=== PATIENT | male | born 1965 | race Caucasian/White ===

== ENCOUNTER 2017-12-19 15:36 | Emergency (ER) | payer SELFPAY ==
[2017-12-19] MEDS ORDERED: SODIUM CHLORIDE 0.9% 1000ML 1,000 ML IVS ONE (15:54)
[2017-12-19] MEDS ORDERED: PROMETHAZINE HCL INJ 25 MG in SODIUM CHLORIDE 0.9% 50ML 50 ML IVPB ONE (15:55)
[2017-12-19] MEDS ORDERED: PROMETHAZINE HCL INJ 25 MG/ML VIAL ONE (15:56)
[2017-12-19] MEDS ORDERED: SODIUM CHLORIDE 0.9% 50ML 50 ML ONE (15:56)
--- NOTE | 2017-12-19 16:21 | RAD ---
EXAM DESCRIPTION: Abdomen Series CLINICAL HISTORY: 20hrs abd pain COMPARISON: None Available. TECHNIQUE: PA chest with supine and upright views of the abdomen] FINDINGS: The lungs are clear. The heart is normal size. There is an unremarkable bowel gas pattern. There is no mass or calculus. IMPRESSION: Normal acute abdomen series Electronically signed by: Anshul José MD 12/19/2017 4:20 PM CDT
[2017-12-19] MEDS ORDERED: ALUMINUM & MAGNESIUM HYDROXIDE 30 ML UD PO ONE (17:18)
[2017-12-19] MEDS ORDERED: POTASSIUM CHLORIDE 20mEq 10ML VIAL IVPB ONE (17:18)
[2017-12-19] MEDS ORDERED: KCL 20MEQ/WATER FOR INJ 100ML 100 ML IVPB ONE (17:43)
--- NOTE | 2017-12-19 17:53 | CT ---
EXAM DESCRIPTION: Abdomen/Pelvis w/Contrast CLINICAL HISTORY:52 years Male, severe abd pain 16 hours Comparison: None TECHNIQUE: Contiguous axial images of the abdomen and pelvis were obtained followed by reconstruction images. This exam was performed according to our departmental dose-optimization program, which includes automated exposure control, adjustment of the mA and/or kV according to patient size and/or use of iterative reconstruction technique. FINDINGS: Lung bases: Lung bases are clear. Heart: Visualized heart is within normal limits in size. Liver:Unremarkable. No focal liver lesion. Gallbladder:Unremarkable. No gallstones. No gallbladder wall thickening or pericholecystic fluid. Spleen:Unremarkable Pancreas: Pancreas is unremarkable. Adrenal glands:Unremarkable Right kidney/ureter:Unremarkable. Left kidney/ureter:Subcentimeter hypodensity, likely cyst. No suspicious lesion. No nephrolithiasis. Bladder:Unremarkable. Pelvic organs: No acute abnormality Vascular structures: Unremarkable Free fluid: No free fluid. Lymph nodes: No abnormal lymph nodes. Stomach/small bowel/colon: Stomach is unremarkable. Small bowel is unremarkable. Colon is unremarkable. Appendix: Dilated appendix with wall thickening and surrounding inflammatory changes. Findings consistent with acute appendicits. Bones: No acute osseous abnormality. Soft tissues: Small fat-containing umbilical hernia.. IMPRESSION: Findings consistent with acute appendicitis. No rita perforation or abscess formation. Electronically signed by: Denis Still MD 12/19/2017 5:51 PM CDT
[2017-12-19] MEDS ORDERED: MORPHINE SULFATE INJ 10 MG/ML VIAL IV ONE (18:08)
[2017-12-19] MEDS ORDERED: PANTOPRAZOLE SODIUM IV 40 MG VIAL IV ONE (18:08)
[2017-12-19] MEDS ORDERED: CEFOTAXIME SODIUM IVPB ONE (18:11)
[2017-12-19] MEDS ORDERED: SODIUM CHLORIDE 0.9% IVPB ONE (18:11)
[2017-12-19] MEDS ORDERED: CEFOTAXIME SODIUM 1 GM VIAL ONE (18:37)
[2017-12-19] MEDS ORDERED: SODIUM CHLORIDE 0.9% 100ML 100 ML IVPB ONE ×2 (18:37→19:20)
--- NOTE | 2017-12-19 18:41 | ED.PDOC ---
History of Present Illness - General Chief Complaint: Abdominal Pain Stated Complaint: ABDOMINAL PAIN Time Seen by Provider: 12/19/17 15:38 Source: patient Exam Limitations: no limitations - History of Present Illness Initial Comments: the patient is a 52-year-old male presenting to the emergency room secondary to diffuse abdominal pain starting more than 24 hours ago. He is not had any diarrhea and has not vomited but he does have nausea. He has had poor oral intake over the last 12 hours. It has gotten to where he is having some pain just with walking. Pain never really localized just to the right lower quadrant. No history of any gallbladder problems. He denies any abdominal surgeries. He thinks he has had a fever but is unsure. No recent trauma. He denies any daily medications. No bleeding problems in the past. Timing/Duration: 24 hours Severity: severe Improving Factors: nothing Worsening Factors: nothing Associated Symptoms: loss of appetite, malaise, nausea/vomiting Allergies/Adverse Reactions: Allergies NO KNOWN ALLERGY Allergy (Verified 12/19/17 15:55) Review of Systems - Review of Systems Constitutional: States: fever, malaise EENTM: States: no symptoms reported Respiratory: States: no symptoms reported Cardiology: States: no symptoms reported Gastrointestinal/Abdominal: States: abdominal pain, nausea. Denies: constipation, diarrhea, vomiting Genitourinary: States: no symptoms reported Musculoskeletal: States: no symptoms reported Skin: States: no symptoms reported Neurological: States: no symptoms reported Endocrine: States: no symptoms reported All other Systems: No Change from Baseline Past Medical History (General) - Patient Medical History Hx Asthma: No Surgical History: no surgical history Family Medical History - Family History Mother Family History: No Known Physical Exam - Physical Exam General Appearance: Alert, Anxious, Obvious distress Eye Exam: bilateral normal Ears, Nose, Throat: hearing grossly normal, normal ENT inspection, normal pharynx - very poor dentition Neck: full range of motion, supple Respiratory: lungs clear, normal breath sounds, no respiratory distress, no accessory muscle use Cardiovascular/Chest: normal peripheral pulses, regular rate, rhythm, no edema Peripheral Pulses: radial,right: 2+, radial,left: 2+, dorsalis pedis,right: 2+, dorsalis pedis,left: 2+ Gastrointestinal/Abdominal: other - the patient does have some guarding.he does have some peritonitis. No definite palpable masses. Questionable rebound. Back Exam: normal inspection, no CVA tenderness Extremity: normal range of motion, non-tender, normal inspection, no pedal edema , normal capillary refill Neurologic: alert, normal mood/affect, oriented x 3 Skin Exam: normal color Comments: Vital Signs - 24 hr 12/19/17 12/19/17 12/19/17 15:46 16:40 17:00 Temperature 100.0 F H Pulse Rate [ 99 H 94 H 98 H pulse ox] Respiratory 20 20 20 Rate Blood Pressure 138/78 118/70 117/70 [Right Arm] O2 Sat by Pulse 99 96 95 Oximetry 12/19/17 18:00 Temperature Pulse Rate [ 103 H pulse ox] Respiratory 20 Rate Blood Pressure 131/69 [Right Arm] O2 Sat by Pulse 96 Oximetry Progress - Progress Progress: 12/19/17 18:42 the patient's a 52-year-old male presenting to the emergency room secondary to abdominal pain that started 24 hours ago. The patient does have an appendicitis by CT scan but no evidence of perforation or abscess formation. White blood cell count is 18,000. Blood culture has been done. He has received a dose of a cephalosporin IV. The patient will be transferred for surgical intervention. He has also received a liter of IV fluids. he has received a dose of morphine and a dose of Phenergan as well. He has also received a dose of Protonix. 12/19/17 18:45 12/19/17 18:54 the patient will be receiving [facility]. Vital signs have been stable. No evidence of hypotension. Lactic acid is within normal limits technically. - Results/Orders Results/Orders: cT scan of abdomen and pelvis shows some thickening of the appendix and some surrounding inflammatory changes. No perforation or abscess. No other acute pathology noted in the abdomen and pelvis. Laboratory Tests 12/19/17 12/19/17 12/19/17 16:05 16:35 16:35 WBC 18.3 H RBC 5.07 Hgb 14.6 Hct 43.0 MCV 84.7 MCH 28.8 MCHC 34.0 RDW 14.3 Plt Count 266 MPV 8.9 Absolute Neuts (auto) 15.10 H Absolute Lymphs (auto) 1.40 Absolute Monos (auto) 1.80 H Absolute Eos (auto) 0.00 Absolute Basos (auto) 0.00 Neutrophils % 82.6 H Lymphocytes % 7.4 L Monocytes % 9.9 H Eosinophils % 0.0 L Basophils % 0.1 PT INR PTT (SP) D-Dimer, Quantitative Sodium 140 Potassium 3.1 L Chloride 101 Carbon Dioxide 31 Anion Gap 11.1 L BUN 17 Creatinine 1.00 BUN/Creatinine Ratio 17.0 Random Glucose 120 H Serum Osmolality 282.1 Lactic Acid Calcium 9.3 Total Bilirubin 2.0 H AST 18 ALT 21 Alkaline Phosphatase 46 Creatine Kinase 120 CK-MB (CK-2) 1.4 CK-MB (CK-2) % Not Reportable Troponin I < 0.02 B-Natriuretic Peptide 29.3 Serum Total Protein 7.9 Albumin 4.6 Globulin 3.3 Albumin/Globulin Ratio 1.4 Amylase 59 Urine Color Yellow Urine Appearance Clear Urine pH >= 9.0 H* Ur Specific [place] 1.015 Urine Protein 100 H Urine Glucose (UA) Negative Urine Ketones Negative Urine Blood Negative Urine Nitrite Negative Urine Bilirubin Negative Urine Urobilinogen 0.2 Ur Leukocyte Esterase Negative Urine RBC 0 Urine WBC 0-1 Ur Epithelial Cells 0-1 Amorphous Sediment 3+ Urine Bacteria 0 12/19/17 12/19/17 16:35 16:35 WBC RBC Hgb Hct MCV MCH MCHC RDW Plt Count MPV Absolute Neuts (auto) Absolute Lymphs (auto) Absolute Monos (auto) Absolute Eos (auto) Absolute Basos (auto) Neutrophils % Lymphocytes % Monocytes % Eosinophils % Basophils % PT 13.1 H INR 1.130 PTT (SP) 28.9 D-Dimer, Quantitative < 230 Sodium Potassium Chloride Carbon Dioxide Anion Gap BUN Creatinine BUN/Creatinine Ratio Random Glucose Serum Osmolality Lactic Acid 1.6 Calcium Total Bilirubin AST ALT Alkaline Phosphatase Creatine Kinase CK-MB (CK-2) CK-MB (CK-2) % Troponin I B-Natriuretic Peptide Serum Total Protein Albumin Globulin Albumin/Globulin Ratio Amylase Urine Color Urine Appearance Urine pH Ur Specific [place] Urine Protein Urine Glucose (UA) Urine Ketones Urine Blood Urine Nitrite Urine Bilirubin Urine Urobilinogen Ur Leukocyte Esterase Urine RBC Urine WBC Ur Epithelial Cells Amorphous Sediment Urine Bacteria Departure - Departure Clinical Impression: Acute appendicitis Qualifiers: Acute appendicitis type: with generalized peritonitis Qualified Code(s): K35.2 - Acute appendicitis with generalized peritonitis Disposition: Transfer to Hospital Transfer to Outside Facility - Transfer Information Accepting Provider:: dr da silva/dr lucas Accepting Facility: [facility] Reason for Transfer: required specialist not available
[2017-12-19] MEDS ORDERED: PIPERACILLIN/TAZOBACTAM 3.375 GM in SODIUM CHLORIDE 0.9% 100ML 100 ML IVPB ONE (18:52)
[2017-12-19 19:20] VITALS: TEMP 101.6; O2SAT 97
[2017-12-19] MEDS ORDERED: PIPERACILLIN/TAZOBACTAM 3.375 GM VIAL IVPB ONE (19:20)
[2017-12-19 19:48] VITALS: BP 130/74
== END 2017-12-19 19:48 | disposition short-term general hospital (02) ==
LOC: ER 15:36
DX: K35.2 Acute appendicitis with generalized peritonitis (principal)
CPT/HCPCS: 36415; 74019; 74177; 80053; 81001; 82150; 82550; 82553; 83605; 83880; 84484; 85025; 85379; 85610; 85730; 87040; A4216; J0698; J2270; J2543; J2550; J3480; J7030; J7050

== ENCOUNTER 2020-06-04 19:26 | Emergency (ER) | payer SELFPAY ==
[2020-06-04] MEDS ORDERED: SODIUM CHLORIDE 0.9% 1000ML 1,000 ML IVS ONE (19:54)
[2020-06-04] MEDS ORDERED: ASPIRIN (CHEWABLE) 81 MG TAB PO ONE (19:55)
--- NOTE | 2020-06-04 20:02 | ED.PDOC ---
History of Present Illness - General Chief Complaint: Respiratory Problem Time Seen by Provider: 06/04/20 19:42 - History of Present Illness Initial Comments: 54 yo M no significant PMH presents to ED c/o chest pain sob diarrhea no blood intermittently x 10 days states 'I just know I've got COVID' Also reports fatigue and body aches. Reports subjective fever denies cough admits sob denies recent travel and is suspicious of possible exposure covid19 admits subjective fever chills denies nausea vomiting admits non bloody diarrhea chest pain and sob denies diaphoresis no change in diet rest or bladder has no PMD no other c/o today. PPE worn-N95 surgical mask with attached face shield over N95 gloves and face shield over that Allergies/Adverse Reactions: Allergies NO KNOWN ALLERGY Allergy (Verified 12/19/17 15:55) Home Medications: Ambulatory Orders Acetaminophen [Tylenol] 650 mg PO Q6H PRN #30 tab 06/04/20 Review of Systems - Review of Systems Constitutional: States: see HPI EENTM: States: see HPI Respiratory: States: see HPI Cardiology: States: see HPI Gastrointestinal/Abdominal: States: see HPI Genitourinary: States: see HPI Musculoskeletal: States: see HPI Skin: States: see HPI Neurological: States: see HPI Endocrine: States: see HPI Hematologic/Lymphatic: States: see HPI All other Systems: Reviewed and Negative Past Medical History (General) - Patient Medical History Hx Asthma: No Family Medical History - Family History Mother Family History: No Known Physical Exam - Physical Exam General Appearance: No apparent distress Eye Exam: bilateral normal Ears, Nose, Throat: normal ENT inspection Neck: non-tender Respiratory: no respiratory distress Cardiovascular/Chest: regular rate, rhythm Gastrointestinal/Abdominal: non tender, soft Rectal Exam: deferred Back Exam: normal inspection Extremity: non-tender Neurologic: no motor/sensory deficits Skin Exam: normal color Progress - Progress Progress: 06/04/20 20:04 A/P-Chest Pain SOB Diarrhea Fatigue Myalgia-iv bolus ekg cxr cbc cmp trop ua asa rapid covid reassess 06/04/20 20:48 EKG-non specific TW changes Sinus Tachycardia 107bpm Laboratory Tests 06/04/20 06/04/20 06/04/20 20:04 20:04 20:04 WBC 11.9 H RBC 5.10 Hgb 14.8 Hct 41.5 L MCV 81.2 MCH 29.0 MCHC 35.8 RDW 14.2 Plt Count 315 MPV 8.0 Absolute Neuts (auto) 9.60 H Absolute Lymphs (auto) 1.20 Absolute Monos (auto) 1.00 H Absolute Eos (auto) 0.00 Absolute Basos (auto) 0.00 Neutrophils % 80.7 H Lymphocytes % 10.5 L Monocytes % 8.4 Eosinophils % 0.0 L Basophils % 0.4 PT 10.7 INR 1.08 PTT (SP) 29.2 Sodium 135 Potassium 3.7 Chloride 97 L Carbon Dioxide 22 Anion Gap 19.7 H BUN 18 Creatinine 1.15 BUN/Creatinine Ratio 15.7 Random Glucose 107 H Serum Osmolality 272.5 L Lactic Acid Calcium 8.9 Total Bilirubin 1.2 H AST 58 H ALT 125 H Alkaline Phosphatase 71 Serum Total Protein 8.2 Albumin 3.8 Globulin 4.4 H Albumin/Globulin Ratio 0.9 L Lipase 35 Urine Color Urine Appearance Urine pH Ur Specific [place] Urine Protein Urine Glucose (UA) Urine Ketones Urine Blood Urine Nitrite Urine Bilirubin Urine Urobilinogen Ur Leukocyte Esterase Urine RBC Urine WBC Ur Epithelial Cells Urine Bacteria Urine Mucus 06/04/20 06/04/20 20:04 20:15 WBC RBC Hgb Hct MCV MCH MCHC RDW Plt Count MPV Absolute Neuts (auto) Absolute Lymphs (auto) Absolute Monos (auto) Absolute Eos (auto) Absolute Basos (auto) Neutrophils % Lymphocytes % Monocytes % Eosinophils % Basophils % PT INR PTT (SP) Sodium Potassium Chloride Carbon Dioxide Anion Gap BUN Creatinine BUN/Creatinine Ratio Random Glucose Serum Osmolality Lactic Acid 1.3 Calcium Total Bilirubin AST ALT Alkaline Phosphatase Serum Total Protein Albumin Globulin Albumin/Globulin Ratio Lipase Urine Color Dk yellow Urine Appearance Sl cloudy Urine pH 5.0 Ur Specific [place] >= 1.030 Urine Protein 100 H Urine Glucose (UA) Negative Urine Ketones 80 H Urine Blood Small H Urine Nitrite Negative Urine Bilirubin Small H Urine Urobilinogen 0.2 Ur Leukocyte Esterase Negative Urine RBC 0-1 Urine WBC 0-1 Ur Epithelial Cells 0 Urine Bacteria 0 Urine Mucus Moderate Dx-Dehydration, Hematuria add ct abdomen pelvis reassess 06/04/20 21:25 Laboratory Tests 06/04/20 06/04/20 06/04/20 20:04 20:04 20:04 WBC 11.9 H RBC 5.10 Hgb 14.8 Hct 41.5 L MCV 81.2 MCH 29.0 MCHC 35.8 RDW 14.2 Plt Count 315 MPV 8.0 Absolute Neuts (auto) 9.60 H Absolute Lymphs (auto) 1.20 Absolute Monos (auto) 1.00 H Absolute Eos (auto) 0.00 Absolute Basos (auto) 0.00 Neutrophils % 80.7 H Lymphocytes % 10.5 L Monocytes % 8.4 Eosinophils % 0.0 L Basophils % 0.4 PT 10.7 INR 1.08 PTT (SP) 29.2 Sodium 135 Potassium 3.7 Chloride 97 L Carbon Dioxide 22 Anion Gap 19.7 H BUN 18 Creatinine 1.15 BUN/Creatinine Ratio 15.7 Random Glucose 107 H Serum Osmolality 272.5 L Lactic Acid Calcium 8.9 Total Bilirubin 1.2 H AST 58 H ALT 125 H Alkaline Phosphatase 71 Troponin I Serum Total Protein 8.2 Albumin 3.8 Globulin 4.4 H Albumin/Globulin Ratio 0.9 L Lipase 35 Urine Color Urine Appearance Urine pH Ur Specific [place] Urine Protein Urine Glucose (UA) Urine Ketones Urine Blood Urine Nitrite Urine Bilirubin Urine Urobilinogen Ur Leukocyte Esterase Urine RBC Urine WBC Ur Epithelial Cells Urine Bacteria Urine Mucus 06/04/20 06/04/20 06/04/20 20:04 20:04 20:15 WBC RBC Hgb Hct MCV MCH MCHC RDW Plt Count MPV Absolute Neuts (auto) Absolute Lymphs (auto) Absolute Monos (auto) Absolute Eos (auto) Absolute Basos (auto) Neutrophils % Lymphocytes % Monocytes % Eosinophils % Basophils % PT INR PTT (SP) Sodium Potassium Chloride Carbon Dioxide Anion Gap BUN Creatinine BUN/Creatinine Ratio Random Glucose Serum Osmolality Lactic Acid 1.3 Calcium Total Bilirubin AST ALT Alkaline Phosphatase Troponin I < 0.02 Serum Total Protein Albumin Globulin Albumin/Globulin Ratio Lipase Urine Color Dk yellow Urine Appearance Sl cloudy Urine pH 5.0 Ur Specific [place] >= 1.030 Urine Protein 100 H Urine Glucose (UA) Negative Urine Ketones 80 H Urine Blood Small H Urine Nitrite Negative Urine Bilirubin Small H Urine Urobilinogen 0.2 Ur Leukocyte Esterase Negative Urine RBC 0-1 Urine WBC 0-1 Ur Epithelial Cells 0 Urine Bacteria 0 Urine Mucus Moderate EXAM: XR Chest, 1 View CLINICAL HISTORY: chest pain sob TECHNIQUE: Frontal view of the chest. COMPARISON: No relevant prior studies available. FINDINGS: Lungs: There is bilateral groundglass interstitial thickening sparing the upper lobes. Superimposed linear atelectasis and/or scarring present bilaterally. Pleural space: No pneumothorax or pleural effusion. Heart: Normal cardiac size and configuration. Mediastinum: No abnormality noted. Bones/joints: No osseous destruction or sclerosis noted. IMPRESSION: Bilateral interstitial changes present concerning for atypical pneumonia or pulmonary edema. There is mild superimposed atelectasis. Electronically signed by: Claire Anguiano MD 06/04/2020 8:32 PM AFTER SCHOOL PROGRAM DIRECTOR EXAM DESCRIPTION: Chest w/o Contrast 06/04/2020 8:50 PM AFTER SCHOOL PROGRAM DIRECTOR CLINICAL HISTORY: 54 years, Male, SOB COMPARISON: Recent chest x-ray performed 06/04/2020 FINDINGS: Multiple transaxial tomograms of the chest were obtained from the lung apices through the adrenal glands, utilizing 5 mm slice thickness at 5 mm interval reconstruction without the administration of IV contrast. Multiplanar reformats in the sagittal and coronal plane were generated and reviewed. An individualized dose optimization technique, Automated Exposure Control, was utilized for the performed procedure. As described in recent chest x-ray there is small focal areas of groundglass densities central right upper lobe, lateral left upper lobe, superior segment left lower lobe atelectasis/minimal crazy paving posterior segment right lower lobe and left lower lobes. The trachea mainstem bronchus demonstrate to be normal. There is no significant pleural and/or pericardial effusions. The heart is normal in size. The thoracic aorta demonstrate to be within normal limits. Prominent right paratracheal lymph node measuring short axis on image 16 right precarinal lymph node with fatty hilum measuring 1 cm on image 20 There is no significant mediastinal and/or hilar lymphadenopathy. The axillary regions demonstrate to be clear. The bone windows demonstrate no significant skeletal lesions. The visualized portions of the upper abdomen demonstrate to be unremarkable. IMPRESSION: BILATERAL GROUNDGLASS OPACITIES THROUGHOUT BOTH LUNG FRNECH WITH LINEAR AREAS OF INTERSTITIAL DENSITY/CRAZY PAVING/ATELECTASIS PERHAPS RELATED TO COVID-19 PNEUMONIA. OTHER PROCESSES SUCH INFLUENZA PNEUMONIA AND ORGANIZING PNEUMONIA, CAN BE SEEN WITH DRUG TOXICITY AND CONNECTIVE TISSUE DISEASE, CAN CAUSE A SIMILAR IMAGING PATTERN. (REFERENCE: [email or web address]/RYCT [email or web address]). MEDIASTINAL REACTIVE LYMPH NODES. Electronically signed by: Anshul Denney MD 06/04/2020 8:53 PM AFTER SCHOOL PROGRAM DIRECTOR Dx-Pneumonia Blood Culture Rocephin Azithromycin 06/04/20 22:20 EXAM DESCRIPTION: Abdoment/Pelvis w/o Contrast CLINICAL HISTORY: hematuria r/o stone COMPARISON: None Available TECHNIQUE: Contiguous axial images of the abdomen and pelvis were obtained followed by reconstruction images. This exam was performed according to our departmental dose-optimization program, which includes automated exposure control, adjustment of the mA and/or kV according to patient size and/or use of iterative reconstruction technique. FINDINGS: Bandlike opacities at the lower lungs may represent scar versus subsegmental atelectasis. The liver, spleen, pancreas and kidneys are within normal limits. There is no hydronephrosis or renal stones. The gallbladder is unremarkable by CT criteria. Adrenal glands are within normal limits. Aorta is of normal caliber and tapering. There is no free fluid in the abdomen or pelvis. There is no bowel obstruction. There is no stranding of the mesenteric fat to suggest an inflammatory response. Pericecal surgical clips compatible with prior appendectomy. Calcifications within the pelvis compatible with phleboliths. IMPRESSION: No acute intra-abdominal abnormality. No hydronephrosis or nephrolithiasis. Bandlike opacities at the lower lungs may represent scar versus subsegmental atelectasis. Electronically signed by: Gil Jones MD 06/04/2020 9:37 PM AFTER SCHOOL PROGRAM DIRECTOR Laboratory Tests 06/04/20 06/04/20 06/04/20 20:04 20:04 20:04 WBC 11.9 H RBC 5.10 Hgb 14.8 Hct 41.5 L MCV 81.2 MCH 29.0 MCHC 35.8 RDW 14.2 Plt Count 315 MPV 8.0 Absolute Neuts (auto) 9.60 H Absolute Lymphs (auto) 1.20 Absolute Monos (auto) 1.00 H Absolute Eos (auto) 0.00 Absolute Basos (auto) 0.00 Neutrophils % 80.7 H Lymphocytes % 10.5 L Monocytes % 8.4 Eosinophils % 0.0 L Basophils % 0.4 PT 10.7 INR 1.08 PTT (SP) 29.2 Sodium 135 Potassium 3.7 Chloride 97 L Carbon Dioxide 22 Anion Gap 19.7 H BUN 18 Creatinine 1.15 BUN/Creatinine Ratio 15.7 Random Glucose 107 H Serum Osmolality 272.5 L Lactic Acid Calcium 8.9 Total Bilirubin 1.2 H AST 58 H ALT 125 H Alkaline Phosphatase 71 Troponin I Serum Total Protein 8.2 Albumin 3.8 Globulin 4.4 H Albumin/Globulin Ratio 0.9 L Lipase 35 Urine Color Urine Appearance Urine pH Ur Specific [place] Urine Protein Urine Glucose (UA) Urine Ketones Urine Blood Urine Nitrite Urine Bilirubin Urine Urobilinogen Ur Leukocyte Esterase Urine RBC Urine WBC Ur Epithelial Cells Urine Bacteria Urine Mucus 06/04/20 06/04/20 06/04/20 20:04 20:04 20:15 WBC RBC Hgb Hct MCV MCH MCHC RDW Plt Count MPV Absolute Neuts (auto) Absolute Lymphs (auto) Absolute Monos (auto) Absolute Eos (auto) Absolute Basos (auto) Neutrophils % Lymphocytes % Monocytes % Eosinophils % Basophils % PT INR PTT (SP) Sodium Potassium Chloride Carbon Dioxide Anion Gap BUN Creatinine BUN/Creatinine Ratio Random Glucose Serum Osmolality Lactic Acid 1.3 Calcium Total Bilirubin AST ALT Alkaline Phosphatase Troponin I < 0.02 Serum Total Protein Albumin Globulin Albumin/Globulin Ratio Lipase Urine Color Dk yellow Urine Appearance Sl cloudy Urine pH 5.0 Ur Specific [place] >= 1.030 Urine Protein 100 H Urine Glucose (UA) Negative Urine Ketones 80 H Urine Blood Small H Urine Nitrite Negative Urine Bilirubin Small H Urine Urobilinogen 0.2 Ur Leukocyte Esterase Negative Urine RBC 0-1 Urine WBC 0-1 Ur Epithelial Cells 0 Urine Bacteria 0 Urine Mucus Moderate 06/04/20 21:39 WBC RBC Hgb Hct MCV MCH MCHC RDW Plt Count MPV Absolute Neuts (auto) Absolute Lymphs (auto) Absolute Monos (auto) Absolute Eos (auto) Absolute Basos (auto) Neutrophils % Lymphocytes % Monocytes % Eosinophils % Basophils % PT INR PTT (SP) Sodium Potassium Chloride Carbon Dioxide Anion Gap BUN Creatinine BUN/Creatinine Ratio Random Glucose Serum Osmolality Lactic Acid Calcium Total Bilirubin AST ALT Alkaline Phosphatase Troponin I < 0.02 Serum Total Protein Albumin Globulin Albumin/Globulin Ratio Lipase Urine Color Urine Appearance Urine pH Ur Specific [place] Urine Protein Urine Glucose (UA) Urine Ketones Urine Blood Urine Nitrite Urine Bilirubin Urine Urobilinogen Ur Leukocyte Esterase Urine RBC Urine WBC Ur Epithelial Cells Urine Bacteria Urine Mucus 06/04/20 22:22 COVID Negative 06/04/20 22:26 Heart score 2. Will d/c home azithromycin Departure - Departure Clinical Impression: SOB (shortness of breath), Myalgia, Counseled about COVID-19 virus infection Chest pain Qualifiers: Chest pain type: unspecified Qualified Code(s): R07.9 - Chest pain, unspecified Diarrhea Qualifiers: Diarrhea type: unspecified type Qualified Code(s): R19.7 - Diarrhea, unspecified Pneumonia Qualifiers: Pneumonia type: due to unspecified organism Laterality: unspecified laterality Lung location: unspecified part of lung Qualified Code(s): J18.9 - Pneumonia, unspecified organism Fatigue Qualifiers: Fatigue type: unspecified Qualified Code(s): R53.83 - Other fatigue Time of Disposition: 22:48 Disposition: Discharge to Home or Self Care Departure Forms: ED Discharge - Pt. Copy, Patient Portal Self Enrollment Prescriptions: Acetaminophen [Tylenol] 650 mg PO Q6H PRN #30 tab PRN Reason: Pain Home Medications: Ambulatory Orders Acetaminophen [Tylenol] 650 mg PO Q6H PRN #30 tab 06/04/20
--- NOTE | 2020-06-04 20:34 | RAD ---
EXAM: XR Chest, 1 View CLINICAL HISTORY: chest pain sob TECHNIQUE: Frontal view of the chest. COMPARISON: No relevant prior studies available. FINDINGS: Lungs: There is bilateral groundglass interstitial thickening sparing the upper lobes. Superimposed linear atelectasis and/or scarring present bilaterally. Pleural space: No pneumothorax or pleural effusion. Heart: Normal cardiac size and configuration. Mediastinum: No abnormality noted. Bones/joints: No osseous destruction or sclerosis noted. IMPRESSION: Bilateral interstitial changes present concerning for atypical pneumonia or pulmonary edema. There is mild superimposed atelectasis. Electronically signed by: Claire Anguiano MD 06/04/2020 8:32 PM AUTOMOTIVE CUSTOMER EXPERIENCE ADVISOR
--- NOTE | 2020-06-04 20:55 | CT ---
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 Multiplanar reformats in the sagittal and coronal plane were generated and reviewed. An individualized dose optimization technique, Automated Exposure Control, was utilized for the performed procedure. As described in recent chest x-ray there is small focal areas of groundglass densities central right upper lobe, lateral left upper lobe, superior segment left lower lobe atelectasis/minimal crazy paving posterior segment right lower lobe and left lower lobes. The trachea mainstem bronchus demonstrate to be normal. There is no significant pleural and/or pericardial effusions. The heart is normal in size. The thoracic aorta demonstrate to be within normal limits. Prominent right paratracheal lymph node measuring short axis on image 16 right precarinal lymph node with fatty hilum measuring 1 cm on image 20 There is no significant mediastinal and/or hilar lymphadenopathy. The axillary regions demonstrate to be clear. The bone windows demonstrate no significant skeletal lesions. The visualized portions of the upper abdomen demonstrate to be unremarkable. IMPRESSION: BILATERAL GROUNDGLASS OPACITIES THROUGHOUT BOTH LUNG FRENCH WITH LINEAR AREAS OF INTERSTITIAL DENSITY/CRAZY PAVING/ATELECTASIS PERHAPS RELATED TO COVID-19 PNEUMONIA. OTHER PROCESSES SUCH INFLUENZA PNEUMONIA AND ORGANIZING PNEUMONIA, CAN BE SEEN WITH DRUG TOXICITY AND CONNECTIVE TISSUE DISEASE, CAN CAUSE A SIMILAR IMAGING PATTERN. (REFERENCE: [email or web address].ORG/DOI/[email or web address]/RYCT [email or web address]). MEDIASTINAL REACTIVE LYMPH NODES. Electronically signed by: Anshul Denney MD 06/04/2020 8:53 PM [employer] APPRENTICE
[2020-06-04 21:26] VITALS: O2SAT 93
[2020-06-04] MEDS ORDERED: cefTRIAXone SODIUM 1 GM in SODIUM CHL 0.9% 50ML MIN-BAG+ 50 ML IVPB ONE (21:27)
[2020-06-04] MEDS ORDERED: AZITHROMYCIN IV 500 MG in SODIUM CHLORIDE 0.9% 250ML 250 ML IVPB ONE (21:27)
[2020-06-04] MEDS ORDERED: DEXAMETHASONE INJ 10 MG/ML VIAL IV ONE (21:27)
--- NOTE | 2020-06-04 21:38 | CT ---
EXAM DESCRIPTION: Abdoment/Pelvis w/o Contrast CLINICAL HISTORY: hematuria r/o stone COMPARISON: None Available TECHNIQUE: Contiguous axial images of the abdomen and pelvis were obtained followed by reconstruction images. This exam was performed according to our departmental dose-optimization program, which includes automated exposure control, adjustment of the mA and/or kV according to patient size and/or use of iterative reconstruction technique. FINDINGS: Bandlike opacities at the lower lungs may represent scar versus subsegmental atelectasis. The liver, spleen, pancreas and kidneys are within normal limits. There is no hydronephrosis or renal stones. The gallbladder is unremarkable by CT criteria. Adrenal glands are within normal limits. Aorta is of normal caliber and tapering. There is no free fluid in the abdomen or pelvis. There is no bowel obstruction. There is no stranding of the mesenteric fat to suggest an inflammatory response. Pericecal surgical clips compatible with prior appendectomy. Calcifications within the pelvis compatible with phleboliths. IMPRESSION: No acute intra-abdominal abnormality. No hydronephrosis or nephrolithiasis. Bandlike opacities at the lower lungs may represent scar versus subsegmental atelectasis. Electronically signed by: Gil Jones MD 06/04/2020 9:37 PM PHONE TECHNICIAN
[2020-06-04] MEDS ORDERED: AZITHROMYCIN 250 MG TAB PO ONE (23:01)
[2020-06-04 23:03] VITALS: BP 130/78; TEMP 97.8
[2020-06-05] MEDS ORDERED: AZITHROMYCIN 250 MG TAB PO SCH (09:00)
== END 2020-06-04 23:05 | disposition home or self-care (01) ==
LOC: ER 19:26
DX: J18.9 Pneumonia, unspecified organism (principal); R07.9 Chest pain, unspecified; R19.7 Diarrhea, unspecified; R53.83 Other fatigue; R00.0 Tachycardia, unspecified; Z20.828 Contact with and (suspected) exposure to other viral communicable diseases
CPT/HCPCS: 36415; 71045; 71250; 74176; 80053; 81001; 83605; 83690; 84484; 85025; 85610; 85730; 87040; 87635; 93005; J0456; J0696; J1100; J7030; J7050; Q0144